=== PATIENT | female | born 1945 | race Caucasian/White ===

== ENCOUNTER → 2016-10-18 | Outpatient (CLI) | payer MEDICARE, BC ==
[~2016-10-18] MED LIST: ACETAMINOPHEN PO; CALAN SR PO; CERTAGEN PO; CITRACAL200 MG PO; FOSAMAX PO; IBUPROFEN PO; KLONOPIN PO; MAXZIDE 75/50 T1 TAB PO; VITAMIN D 4001 UDTAB PO
--- NOTE | ~2016-10-18 | BD1 ---
[facility] A Service of [facility] & [facility] RADIOLOGY TEXT RESULTS PATIENT: ROSA MOORE LOCATION: SRA : 41 UNIT #: [id number] AGE: [address]: Chantale Whitfield MD SEX: F ORDER DR: [id number] [address] [id number] O MR#: [id number] Acc #: [id number] NAME: ROSA MOORE : 1945 SEX: F STUDY DATE/TIME: 10/18/2016 14:18 UNIT: SRAD ROOM: STUDY DESCRIPTION: Dexa Bone Dens 1+ Site Attending Physician: Chantale Whitfield M.D. Referring Physician: Chantale Whitfield M.D. Ordering Physician: Chantale Whitfield M.D. Primary Care Physician: Chantale Whitfield M.D. MEDICAL IMAGING REPORT This report is preliminary unless electronic signature is present. EXAM DXA scan, 10/18/2016. HISTORY Status post menopause with no hormone replacement therapy. Osteopenia. Hypertension with blood pressure medication for 20 years. Steroid use for 2 years. High-risk for osteoporosis. Smoking history for 20 years. Family history of osteoporosis in mother. FINDINGS Bone mineral density in the lumbar spine from L1 through L4 was 0.884 g/cm2, which is 2.5 standard deviations below the mean when compared to the young adult reference population, which is characteristic of osteoporosis. This is 0.7 standard deviation below the mean when compared to the age-matched population. Compared with 11/10/2013, there has been an increase in bone mineral density in the lumbar spine of 1%. Bone mineral density in the left femoral neck was 0.572 g/cm2, which is 3.4 standard deviations below the mean when compared to the young adult reference population, which is characteristic of osteoporosis. This is 1.5 standard deviations below the mean when compared to the age-matched population. Compared with 11/10/2013, there has been a decrease in bone mineral density in the left hip of 5.3%. Bone mineral density in the right femoral neck was 0.601 g/cm2, which is 3.1 standard deviations below the mean when compared to the young adult reference population, which is characteristic of osteoporosis. This is 1.2 standard deviations below the mean when compared to the age-matched population. Compared with 11/10/2013, there has been a decrease in bone mineral density in the right hip of 2.2%. IMPRESSION [facility] A Service of [facility] RADIOLOGY TEXT RESULTS PATIENT: ROSA MOORE LOCATION: [facility] : 41 UNIT #: [id number] AGE: [address]: Chantale Whitfield MD SEX: F ORDER DR: Bone mineral density in the lumbar spine and the hips bilaterally characteristic of osteoporosis. Compared with 11/10/2013, there has been an increase in bone mineral density in the lumbar spine and a decrease in bone mineral density in the hips bilaterally. Dictated by... Tommy Daniel M.D. THIS IS AN ELECTRONICALLY VERIFIED REPORT Tommy Daniel M.D. at 10/19/2016 8:12 AM [place] TD: 10/18/2016 15:55 JOB #: [id number] MEDICAL IMAGING REPORT Page 1 of 1
== END | disposition home or self-care (01) ==
LOC: SRAD 13:48
DX: M81.0 Age-related osteoporosis without current pathological fracture (principal); M85.89 Other specified disorders of bone density and structure, multiple sites
CPT/HCPCS: 77080